=== PATIENT | female | born 1985 | race Caucasian/White ===

== ENCOUNTER 2019-01-12 08:32 | Emergency (ER) | payer OTHER ==
[2019-01-12 08:48] VITALS: BP 108/69; PULSE 89; TEMP 98.2; BMI 20.1
[2019-01-12] MEDS ORDERED: DIPHTH,PERTUSS(ACELL),TET 0.5 ML DISP.SYRIN IM ONE ×2 (08:59→09:04)
--- NOTE | 2019-01-12 09:11 | PDOC ---
History of Present Illness - General Chief Complaint: Bite Stated Complaint: FINGER INJURY Time Seen by Provider: 01/12/19 08:57 History Source: Patient Exam Limitations: No Limitations - History of Present Illness Initial Comments: 01/12/19 08:59 works at [employer]- bitten by dog/patient to right thumb. Dog known to animal clinic, vaccinations are all up-to-date, and able to be quarantined for observation. 01/12/19 12:48 Occurred: reports: just prior to arrival, this morning Severity: reports: mild, moderate Pain Location: reports: lower extremity Associated Symptoms (Fall): denies symptoms Past History - Travel Traveled outside of the country in the last 30 days: No Close contact w/someone who was outside of country & ill: No - Past Medical History Allergies/Adverse Reactions: Allergies Allergy/AdvReac Type Severity Reaction Status Date / Time Penicillins Allergy Verified 01/12/19 08:37 Home Medications: Ambulatory Orders Clindamycin [Cleocin -] 300 mg PO TID #21 capsule 01/12/19 COPD: No - Immunization History Immunization Up to Date: Yes - Suicide/Smoking/Psychosocial Hx Smoking History: Current every day smoker Number of Cigarettes Smoked Daily: 3 Information on smoking cessation initiated: No Hx Alcohol Use: No Drug/Substance Use Hx: No Review of Systems - Review of Systems Able to Perform ROS?: Yes Is the patient limited Latvian proficient: Yes Constitutional: Yes: See HPI. No: Symptoms Reported, Fever, Malaise HEENTM: Yes: See HPI. No: Symptoms Reported Musculoskeletal: Yes: Symptoms Reported, See HPI Integumentary: Yes: Symptoms Reported, See HPI, Bruising, Erythema Neurological: Yes: See HPI. No: Symptoms reported All Other Systems: Reviewed and Negative *Physical Exam - Vital Signs Last Vital Signs Temp Pulse Resp BP Pulse Ox 98.2 F 89 17 108/69 99 01/12/19 08:37 01/12/19 08:37 01/12/19 08:37 01/12/19 08:37 01/12/19 08:37 - Physical Exam General Appearance: Yes: Nourished, Appropriately Dressed, Apparent Distress, Mild Distress HEENT: positive: ANTWAN, Normal ENT Inspection, TMs Normal, Pharynx Normal Musculoskeletal: positive: Normal Inspection Extremity: positive: Normal Capillary Refill, Normal Range of Motion (Extension against resistance, has a 1 cm laceration to the pad of right thumb with some bruising on the), Tender. negative: Normal Inspection Integumentary: positive: Normal Color, Dry, Warm Neurologic: positive: assisted living executive director II-XII NML intact, Fully Oriented, Alert, Normal Mood/ Affect, Normal Response, Motor Strength 5/5 Progress Note - Progress Note Progress Note: Dog bite, able to be quarantined therefore no indication for rabies. Tetanus/ diphtheria/pertussis booster updated today, wound cleaned and dressed with bacitracin ointment and will start on clindamycin as patient has penicillin ALLERGY. *DC/Admit/Observation/Transfer Diagnosis at time of Disposition: Dog bite of finger Qualifiers: Encounter type: initial encounter Qualified Code(s): S61.259A - Open bite of unspecified finger without damage to nail, initial encounter - Discharge Dispostion Disposition: HOME Condition at time of disposition: Stable Decision to Admit order: No - Prescriptions Prescriptions: Clindamycin [Cleocin -] 300 mg PO TID #21 capsule - Referrals - Patient Instructions Printed Discharge Instructions: How to Care for a Domestic Animal Bite Additional Instructions: Rest, keep area elevated. Avoid strenuous activity or exercise until wound is healed Use hot soaks to area to bring more blood to the surface and encourage drainage May change dressings as needed to keep clean - Allow water from shower to wash area thoroughly for 2-3 minutes, and pat dry upon exit of shower and replace dressing. Change his dressing daily until the wound is completely healed. May use Tylenol or Motrin for mild pain relief Her tetanus/diphtheria/pertussis booster was updated today Continue all medications as prescribed Followup with private physician in 2-3 days for wound check Return to emergency Department for worsening swelling, pain, redness, fevers as needed - Post Discharge Activity Forms/Work/School Notes: Back to Work
== END 2019-01-12 09:32 | disposition home or self-care (01) ==
LOC: JERFT 08:32 → JER 08:32 → JERFT 09:32
PROC: 3E0234Z Introduction of Serum, Toxoid and Vaccine into Muscle, Percutaneous Approach (ICD-10-PCS; principal; 2019-01-12)
DX: S61.051A Open bite of right thumb without damage to nail, initial encounter (principal); W54.0XXA Bitten by dog, initial encounter; Y93.K9 Activity, other involving animal care; Y92.538 Other ambulatory health services establishments as the place of occurrence of the external cause; Y99.0 Civilian activity done for income or pay
CPT/HCPCS: 90715; 99281-25

== ENCOUNTER 2019-06-16 08:29 | Emergency (ER) | payer OTHER ==
[2019-06-16 08:33] VITALS: BP 109/57; PULSE 79; TEMP 97.9; BMI 21.6
--- NOTE | 2019-06-16 08:49 | PDOC ---
History of Present Illness - General Chief Complaint: Bite Stated Complaint: CAT BITE L RING FINGER Time Seen by Provider: 06/16/19 08:42 History Source: Patient Exam Limitations: No Limitations Past History - Travel Traveled outside of the country in the last 30 days: No Close contact w/someone who was outside of country & ill: No - Past Medical History Allergies/Adverse Reactions: Allergies Allergy/AdvReac Type Severity Reaction Status Date / Time Penicillins Allergy Verified 06/16/19 08:34 Home Medications: Ambulatory Orders Doxycycline Hyclate 100 mg PO BID #14 tablet 06/16/19 COPD: No - Immunization History Immunization Up to Date: Yes - Suicide/Smoking/Psychosocial Hx Smoking History: Current every day smoker Number of Cigarettes Smoked Daily: 1 Information on smoking cessation initiated: No Hx Alcohol Use: No Drug/Substance Use Hx: No Review of Systems - Review of Systems Able to Perform ROS?: Yes Comments:: 06/16/19 08:42 CONSTITUTIONAL: Absent: fever, chills, diaphoresis, generalized weakness, malaise, loss of appetite HEENT: Absent: rhinorrhea, nasal congestion, throat pain, throat swelling, difficulty swallowing, mouth swelling, ear pain, eye pain, visual Changes MUSCULOSKELETAL: Absent: myalgia, arthralgia, joint swelling SKIN: Present: cat bite Absent: rash, itching, pallor NEUROLOGIC: Absent: headache, focal weakness or paresthesias, dizziness, unsteady gait, seizure, mental status changes, bladder or bowel incontinence PSYCHIATRIC: Absent: anxiety, depression, suicidal or homicidal ideation, hallucinations. Is the patient limited Andorran proficient: No *Physical Exam - Vital Signs Last Vital Signs Temp Pulse Resp BP Pulse Ox 97.9 F 79 16 109/57 L 98 06/16/19 08:31 06/16/19 08:31 06/16/19 08:31 06/16/19 08:31 06/16/19 08:31 - Physical Exam Comments: 06/16/19 08:43 GENERAL: The patient is awake, alert, and fully oriented, in no acute distress. HEAD: Normal with no signs of trauma. EYES: Pupils equal, round and reactive to light, extraocular movements intact, sclera anicteric, conjunctiva clear. EXTREMITIES: Normal range of motion, no edema. NEUROLOGICAL: Normal speech, normal gait. PSYCH: Normal mood, normal affect. SKIN: Puncture wound noted to the L fourth finger. No surrounding erythema or prurulent drainage. Warm, Dry, normal turgor, no rashes or lesions noted. Medical Decision Making - Medical Decision Making 06/16/19 08:49 The patient is a 33 y/o F who presents to the ER for a cat bite. 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 She states the cat is known to her and has all its rabies shots. She got bit on the L 4th finger this morning. She is UTD on tetanus. A/P: Cat bite Puncture wound present to the L 4th finger. No overlying cellulitis or drainage Tetanus UTD Will place on augmentin and DC home with PCP follow up I discussed the physical exam findings, ancillary test results and final diagnoses with the patient. I answered all of the patient's questions. The patient was satisfied with the care received and felt comfortable with the discharge plan and treatment plan. The Patient agrees to follow up with the primary care physician/specialist within 24-72 hours. Return precautions were given. *DC/Admit/Observation/Transfer Diagnosis at time of Disposition: Cat bite Qualifiers: Encounter type: initial encounter Qualified Code(s): W55.01XA - Bitten by cat, initial encounter - Discharge Dispostion Disposition: HOME Condition at time of disposition: Stable Decision to Admit order: No - Prescriptions Prescriptions: Doxycycline Hyclate 100 mg PO BID #14 tablet - Referrals Referrals: Param Sanches MD [Staff Physician] - - Patient Instructions Printed Discharge Instructions: DI for Animal Bites Additional Instructions: You were bit by a cat at work today Keep the area clean and dry Take the antibiotics as directed. Take with food Follow up with your primary care doctor for further treatment Return to the ER for any new or worsening symptoms - Post Discharge Activity
== END 2019-06-16 09:07 | disposition home or self-care (01) ==
LOC: JERFT 08:29
DX: S61.255A Open bite of left ring finger without damage to nail, initial encounter (principal); W55.01XA Bitten by cat, initial encounter; Y93.K9 Activity, other involving animal care; Y92.538 Other ambulatory health services establishments as the place of occurrence of the external cause; Y99.0 Civilian activity done for income or pay
CPT/HCPCS: 99281-25